=== PATIENT | male | born 1965 | race Caucasian/White ===

== ENCOUNTER 2021-11-12 05:46 | Day surgery (SDC) | payer OTHER ==
[~2021-11-12] VITALS: Ht 264.2 cm; Wt 88.5 kg
[~2021-11-12 05:46] MED LIST: ATOVASTATIN PO; DURICEF 500 MG CAPSULE PO; METFORMIN HCL850 MG PO; TRAM1TAB98 PO; ZETIA10 MG PO
[2021-11-12] MEDS ORDERED: ULTRACET PO (10:03)
[2021-11-12] MEDS ORDERED: DUI500 PO (10:03)
== END 2021-11-12 14:25 | disposition home or self-care (01) ==
LOC: CIR.AMB 05:46
PROVIDERS: ATTEND Orthopaedic Surgery Sports Medicine
DX: M70.22 Olecranon bursitis, left elbow (principal); M94.222 Chondromalacia, left elbow; Z20.822 Contact with and (suspected) exposure to COVID-19; E11.9 Type 2 diabetes mellitus without complications; Z79.84 Long term (current) use of oral hypoglycemic drugs